=== PATIENT | female | born 1925 | race Caucasian/White ===

== ENCOUNTER 2017-04-12 09:12 | Inpatient (IN) | payer MEDICARE, BC ==
[2017-04-12] VITALS (20 sets, daily range): BP systolic 106–158; BP diastolic 52–75; PULSE 72–97; RESP 18–28; TEMP 97.4–98.6; O2SAT 93–100
[~2017-04-12] VITALS: Ht 149.9 cm; Wt 54.0 kg
[~2017-04-12 09:12] MED LIST: ESTR42.5V VAGINAL; MELO7.5T4 PO; QUIN20TA33 PO; TOVI8TAB PO; VYTO10TA8 PO
[2017-04-12] MEDS ORDERED: SODIUM CHLORIDE 0.9% FLUSH 10 ML FLUSH IVF PRN (09:45)
[2017-04-12 09:46] LABS: MEAN CORPUSCULAR HGB CONC 29.6 % (32.0-36.0)
[2017-04-12 10:01] LABS: AUTOMATED NEUTROPHIL # 4.1 TH/MM3 (1.8-7.7); BASOPHIL % 0.5 % (0.0-2.0); EOSINOPHIL # 0.1 TH/MM3 (0-0.4); EOSINOPHIL % 2.2 % (0.0-4.0); LYMPH % 11.8 % (9.0-44.0); LYMPHOCYTE # 0.6 TH/MM3 (1.0-4.8); MEAN CORPUSCULAR HEMOGLOBIN 19.3 PG (27.0-34.0); MONO % 8.5 % (0.0-8.0); PLATELET COUNT 179 TH/MM3 (150-450); RED BLOOD COUNT 2.53 MIL/MM3 (4.00-5.30); WHITE BLOOD COUNT 5.4 TH/MM3 (4.0-11.0)
[2017-04-12 10:04] LABS: HEMO FLAGS DIFF FINAL
[2017-04-12 10:06] LABS: HEMATOCRIT 16.5 % (35.0-46.0)
--- NOTE | 2017-04-12 10:12 | RADRPT ---
EXAM DATE/TIME: 04/12/2017 09:46 [place] COMPARISON: No previous studies available for comparison. INDICATIONS : Patient states that she cannot take in deep inspiration. MEDICAL HISTORY : None. SURGICAL HISTORY : None. ENCOUNTER: Initial ACUITY: 1 day PAIN SCORE: 2/10 LOCATION: Bilateral upper chest FINDINGS: There is minimal basilar parenchymal opacity. Slight blunting of the right costophrenic angle may ind icate small effusion. Cardiac contours are satisfactory. CONCLUSION: Mild basilar parenchymal opacities and possible tiny effusion Fermin Thomas MD on April 12, 2017 at 10:10 Board Certified Radiologist. This report was verified electronically.
[2017-04-12] MEDS ORDERED: SODIUM CHLOR 0.9% 250 ML INJ 250 ML IV ONE (10:15)
--- NOTE | 2017-04-12 10:24 | PD ---
HPI Chief Complaint: Respiratory Symptoms Time Seen by Provider: 09:44 Travel History International Travel<30 days: No Contact w/Intl Traveler<30days: No Traveled to known affect area: No History of Present Illness HPI 89-year-old female arrives to the ER due to shortness of breath. The patient has dyspnea on exertion. There is no orthopnea. She has no chest pain. She does have back pain which radiates to the leg into the shoulder. The symptoms have been gradual in onset. Duration of the shortness of breath has been on the order of weeks and gradually worsening. The son believes it might be due to low hemoglobin. The patient has had no bloody stool or dark stool. Evidently the son has been able to help with the fecal occult blood tests and reports no blood in stool. No fever or cough. No nausea vomiting. No diarrhea. PFSH Past Medical History Anxiety: Yes Cancer: Yes (SKIN) Cardiovascular Problems: Yes High Cholesterol: Yes Diabetes: Yes Patient Takes Glucophage: No Diminished Hearing: No Gastrointestinal Disorders: Yes GERD: Yes Hypertension: Yes Psychiatric: Yes Respiratory: Yes Integumentary: Yes Thyroid Disease: Yes : 3 Para: 3 Past Surgical History Gynecologic Surgery: Yes Hysterectomy: Yes Tonsillectomy: Yes Other Surgery: Yes (PRE-CANCEROUS SKIN REMOVED) Social History Alcohol Use: No Tobacco Use: No Substance Use: No Allergies-Medications (Allergen,Severity, Reaction): Coded Allergies: No Known Allergies (Unverified , 04/12/17) Reported Meds & Prescriptions Reported Meds & Active Scripts Active Quinapril HCl 20 Mg Tablet 20 Mg PO DAILY Toviaz ER (Fesoterodine Fumarate) 8 Mg Paul 8 Mg PO DAILY Reported Prevacid (Lansoprazole) Unknown Strength Capdr 1 Cap PO DAILY Mobic (Meloxicam) 15 Mg Tab 15 Mg PO DAILY Vitamin D3 (Cholecalciferol) 1,000 Unit Tab 1,000 Units PO DAILY Ascorbic Acid 500 Mg Tab 500 Mg PO DAILY Fiber Gummies (Inulin/Chromium Picolinate) 1 Each Tab.chew 1 Chew PO DAILY Centrum Silver Women Tablet (Multivit-Min/Iron/Folic/Lutein) 1 Each Tablet 1 Tab PO DAILY Probiotic (Lactobacillus Acidophilus) 1 Cap Cap 1 Cap PO DAILY Aspirin Adult Low Strength (Aspirin) 81 Mg Tabdr 81 Mg PO DAILY Estrace Vaginal (Estradiol) 0.01% Cream 1 Appl VAGINAL MOWEFR Insert 1 applicatorful vaginally at bedtime on Monday,Monday and Monday Januvia (Sitagliptin Phosphate) 100 Mg Tab 100 Mg PO DAILY Levothyroxine (Levothyroxine Sodium) 25 Mcg Tab 25 Mcg PO DAILY Metoprolol Tartrate 25 Mg Tab 25 Mg PO DAILY Evista (Raloxifene HCl) 60 Mg Tab 60 Mg PO DAILY Review of Systems Except as stated in HPI: all other systems reviewed are Neg General / Constitutional: No: Fever Gastrointestinal: Positive: Diarrhea Physical Exam Narrative GENERAL: 89 yo F, WNWD, NAD SKIN: Warm and dry. HEAD: Atraumatic. Normocephalic. EYES: Pupils equal and round. No scleral icterus. No injection or drainage. ENT: No nasal bleeding or discharge. Mucous membranes pink and moist. NECK: Trachea midline. No JVD. CARDIOVASCULAR: Regular rate and rhythm. RESPIRATORY: No accessory muscle use. Clear to auscultation. Breath sounds equal bilaterally. GASTROINTESTINAL: Abdomen soft, non-tender, nondistended. Hepatic and splenic margins not palpable. MUSCULOSKELETAL: Extremities without clubbing, cyanosis, or edema. No obvious deformities. NEUROLOGICAL: Awake and alert. No obvious cranial nerve deficits. Motor grossly within normal limits. Five out of 5 muscle strength in the arms and legs. Normal speech. PSYCHIATRIC: Appropriate mood and affect; insight and judgment normal. Data Data Last Documented VS Vital Signs Date Time Temp Pulse Resp B/P Pulse Ox O2 Delivery O2 Flow Rate FiO2 04/12/17 10:38 83 26 118/57 99 Nasal Cannula 2.0 04/12/17 09:14 98.2 Vital signs reviewed Orders Electrocardiogram (04/12/17 ) Complete Blood Count With Diff (04/12/17 09:44) B-Type Natriuretic Peptide (04/12/17 09:44) Ckmb (Isoenzyme) Profile (04/12/17 09:44) Troponin I (04/12/17 09:44) Urinalysis - C+S If Indicated (04/12/17 09:44) Iv Access Insert/Monitor (04/12/17 09:44) Electrocardiogram (04/12/17 09:44) Ecg Monitoring (04/12/17 09:44) Oximetry (04/12/17 09:44) Oxygen Administration (04/12/17 09:44) Chest, Single Ap (04/12/17 09:44) Sodium Chloride 0.9% Flush (Ns Flush) (04/12/17 09:45) Basic Metabolic Panel (Bmp) (04/12/17 09:44) Type And Screen (04/12/17 10:08) Red Blood Cells (Rbc) (04/12/17 10:08) Blood Product Administration .UPON TRANSFUSION (04/12/17 10:08) Sodium Chlor 0.9% 250 Ml Inj (Ns 250 Ml (04/12/17 10:15) Admit Order (Ed Use Only) (04/12/17 10:43) Iron/Tibc Profile (04/12/17 10:42) Labs Laboratory Tests Test 04/12/17 09:30 White Blood Count 5.4 TH/MM3 Red Blood Count 2.53 MIL/MM3 Hemoglobin 4.9 GM/DL Hematocrit 16.5 % Mean Corpuscular Volume 65.0 FL Mean Corpuscular Hemoglobin 19.3 PG Mean Corpuscular Hemoglobin 29.6 % Concent Red Cell Distribution Width 24.0 % Platelet Count 179 TH/MM3 Mean Platelet Volume 8.7 FL Neutrophils (%) (Auto) 77.0 % Lymphocytes (%) (Auto) 11.8 % Monocytes (%) (Auto) 8.5 % Eosinophils (%) (Auto) 2.2 % Basophils (%) (Auto) 0.5 % Neutrophils # (Auto) 4.1 TH/MM3 Lymphocytes # (Auto) 0.6 TH/MM3 Monocytes # (Auto) 0.5 TH/MM3 Eosinophils # (Auto) 0.1 TH/MM3 Basophils # (Auto) 0.0 TH/MM3 CBC Comment DIFF FINAL Differential Comment Sodium Level 138 MEQ/L Potassium Level 4.8 MEQ/L Chloride Level 107 MEQ/L Carbon Dioxide Level 22.7 MEQ/L Anion Gap 8 MEQ/L Blood Urea Nitrogen 22 MG/DL Creatinine 1.43 MG/DL Estimat Glomerular Filtration 35 ML/MIN Rate Random Glucose 141 MG/DL Calcium Level 8.5 MG/DL Total Creatine Kinase 76 U/L Troponin I 0.03 NG/ML B-Type Natriuretic Peptide 577 PG/ML MDM Medical Decision Making Medical Screen Exam Complete: Yes Emergency Medical Condition: Yes Medical Record Reviewed: Yes Differential Diagnosis Anemia, renal failure, CHF, COPD, pneumonia, electrolyte imbalance polypharmacy Narrative Course EKG reveals a sinus rhythm with a right bundle branch block, rate 91 CBC & BMP Diagram 04/12/17 09:30 Tn 0.03 BNP 577 2U PRBCs ordered. Case d/w Family Medicine Residents, admission for acute anemia and PRBC transfusion. Diagnosis Primary Impression: Anemia Qualified Code: D64.9 - Anemia, unspecified type Additional Impression: CHF (congestive heart failure) Admitting Information Admitting Physician Requests: Admit Ludwin Rutledge MD Apr 12, 2017 10:24
[2017-04-12 10:33] LABS: BICARBONATE 22.7 MEQ/L (21.0-32.0)
[2017-04-12 10:36] LABS: POTASSIUM 4.8 MEQ/L (3.5-5.1)
[2017-04-12] MEDS ORDERED: ESTR42.5V VAGINAL (10:48)
[2017-04-12] MEDS ORDERED: MOBI15TA PO (10:48)
[2017-04-12] MEDS ORDERED: LEVO25TA4 PO (10:48)
[2017-04-12] MEDS ORDERED: SITA1TAB2 PO (10:48)
[2017-04-12] MEDS ORDERED: EVIS60TA PO (10:48)
[2017-04-12] MEDS ORDERED: INUL1TAB PO (10:48)
[2017-04-12] MEDS ORDERED: LACTCAP8 PO (10:48)
[2017-04-12] MEDS ORDERED: MULT1TAB61 PO (10:48)
[2017-04-12] MEDS ORDERED: ASCO500T PO (10:48)
[2017-04-12] MEDS ORDERED: ASPI1TAB91 PO (10:48)
[2017-04-12] MEDS ORDERED: VITA100064 PO (10:48)
[2017-04-12] MEDS ORDERED: METO25TA3 PO (10:48)
[2017-04-12] MEDS ORDERED: PREV30CA11 PO (10:50)
[2017-04-12 11:23] LABS: TRANSFERRIN IRON PROFILE 341 MG/DL (200-360)
[2017-04-12] MEDS ORDERED: ONDANSETRON HCL 4 MG/2 ML VIAL IVP PRN (11:30)
[2017-04-12] MEDS ORDERED: SODIUM CHLORIDE 0.9% FLUSH 10 ML FLUSH IV FLUSH PRN (11:30)
[2017-04-12] MEDS ORDERED: NALOXONE HCL 0.4 MG/ML AMP IV PRN (11:30)
[2017-04-12] MEDS ORDERED: RESP: ALBUTEROL 2.5 MG/IPRATROPIUM 0.5 MG NEB (PRN) NEB (11:32)
[2017-04-12] MEDS ORDERED: GLUCAGON 1 MG/ML VIAL OTHER PRN (12:00)
[2017-04-12] MEDS ORDERED: FUROSEMIDE 20 MG/2 ML VIAL IV ONE (12:00)
[2017-04-12] MEDS ORDERED: METOPROLOL TARTRATE 25 MG TAB PO SCH (12:00)
[2017-04-12] MEDS ORDERED: DEXTROSE 50% IN WATER 50 ML VIAL(D50) IV PUSH PRN (12:00)
[2017-04-12] MEDS: SODIUM CHLOR 0.9% 1000 ML INJ 1,000 ML IV SCH (12:08)
[2017-04-12] MEDS: PANTOPRAZOLE SODIUM 40 MG VIAL IV PUSH SCH (12:08)
[2017-04-12] MEDS: SODIUM CHLORIDE 0.9% FLUSH 10 ML FLUSH IV FLUSH SCH (12:08)
[2017-04-12 12:20] LABS: BACTERIA, URINE RARE /hpf; BLOOD, URINE NEG (NEG); COMMENT (UR) CULT NOT INDICATED; CULTURE IF INDICATED CULT NOT INDICATED; GLUCOSE,URINE NEG (NEG); KETONE, URINE NEG (NEG); NITRITE,URINE NEG (NEG); PH, URINE 5.5 (5.0-8.5); SQUAMOUS EPITHELIAL CELL URINE 1 /hpf (0-5); URINE COLOR LIGHT-YELLOW (YELLW/STRAW)
[2017-04-12] MEDS: LEVOTHYROXINE SODIUM 25 MCG TAB PO SCH (12:22)
--- NOTE | 2017-04-12 12:24 | HHI.HP ---
[facility] Service Family Medicine Primary Care Physician Jules Levy MD Admission Diagnosis Anemia Diagnoses: International Travel<30 Days: No Contact w/Intl Traveler<30days: No Known Affected Area: No History of Present Illness Freda Borrego is a very pleasant 89 year old woman with PMH of HTN and DM who presents to the ED due to feeling short of breath for the past few days. Her Hgb is found to be 4.9 on admission. Her son states her Hgb was 9.0 in January of this year. Freda states her shortness of breath has been gradually worsening over the past few days and thinks it may be associated with some low back pain she has been having. She denies any excessive fatigue or lightheadedness. She denies a history of CHF or COPD. Denies abdominal pain, melena, visible blood in stools, vomiting or hematemesis. She states she has never had a colonoscopy or EGD. She had been taking mobic 7.5mg daily for relief of her back pain over a period of about 2 weeks recently however stopped taking this a few days ago after she started feeling short of breath. Review of Systems Constitutional: DENIES: Fever, Chills, Change in appetite Respiratory: COMPLAINS OF: Shortness of breath, DENIES: Cough, Hemoptysis, Sputum production Cardiovascular: DENIES: Chest pain, Lower Extremity Edema Gastrointestinal: DENIES: Abdominal pain, Black stools, Bloody stools, Constipation, Diarrhea, Nausea, Vomiting Genitourinary: DENIES: Dysuria Past Family Social History Past Medical History HTN DM HLD Hypothyroidism Low back pain Past Surgical History L knee replacement L hip replacement Hysterectomy Excision of precancerous lesions on face Allergies: Coded Allergies: No Known Allergies (Unverified , 04/12/17) Family History HTN and DM in the family Social History Tobacco: reports a history of smoking over a period of 30-40 years, states she quit 30 years ago Etoh: denies Illicit drugs: denerick Recently moved from [place] Resides at [facility] Physical Exam Vital Signs Vital Signs Date Time Temp Pulse Resp B/P Pulse Ox O2 Delivery O2 Flow Rate FiO2 04/12/17 11:50 99 Nasal Cannula 2.00 04/12/17 11:46 96 25 127/59 99 Nasal Cannula 2.0 04/12/17 10:38 83 26 118/57 99 Nasal Cannula 2.0 04/12/17 09:47 96 Room Air 04/12/17 09:47 Nasal Cannula 2.0 04/12/17 09:36 96 22 110/69 96 Room Air 04/12/17 09:14 98.2 97 28 127/60 98 Room Air Physical Exam GENERAL: NAD, lying comfortably in bed NEURO: Alert. Normal speech. baler operator grossly intact. Motor grossly normal. SKIN: Warm and dry. Scattered senile ecchymoses on extremities. No open lesions. No skin breakdown. HEAD: Normocephalic. Atraumatic. EYES: PERRL. EOMI. No scleral icterus. No injection or drainage. Conjunctival pallor. ENT: No nasal drainage. Moist mucous membranes. No oral ulcers or lesions. NECK: Supple, trachea midline. No JVD. CARDIOVASCULAR: Regular rate and rhythm, blowing systolic murmur L and R USB. Peripheral pulses 2+. Capillary refill ~3-4 seconds. RESPIRATORY: Breath sounds clear to auscultation and equal bilaterally, without wheezes, rales, or rhonchi. No accessory muscle use. GASTROINTESTINAL: Abdomen soft, nontender, nondistended, normal BS. No organomegaly or masses. No rebound tenderness. No guarding. MUSCULOSKELETAL: No lower extremity edema. Normal range of motion. BACK: Nontender without obvious deformity. Laboratory Laboratory Tests Test 04/12/17 04/12/17 09:30 10:34 White Blood Count 5.4 Red Blood Count 2.53 Hemoglobin 4.9 Hematocrit 16.5 Mean Corpuscular Volume 65.0 Mean Corpuscular Hemoglobin 19.3 Mean Corpuscular Hemoglobin 29.6 Concent Red Cell Distribution Width 24.0 Platelet Count 179 Mean Platelet Volume 8.7 Neutrophils (%) (Auto) 77.0 Lymphocytes (%) (Auto) 11.8 Monocytes (%) (Auto) 8.5 Eosinophils (%) (Auto) 2.2 Basophils (%) (Auto) 0.5 Neutrophils # (Auto) 4.1 Lymphocytes # (Auto) 0.6 Monocytes # (Auto) 0.5 Eosinophils # (Auto) 0.1 Basophils # (Auto) 0.0 CBC Comment DIFF FINAL Differential Comment Sodium Level 138 Potassium Level 4.8 Chloride Level 107 Carbon Dioxide Level 22.7 Anion Gap 8 Blood Urea Nitrogen 22 Creatinine 1.43 Estimat Glomerular Filtration 35 Rate Random Glucose 141 Calcium Level 8.5 Iron Level 20 Total Iron Binding Capacity 477 Percent Iron Saturation 4.2 Total Creatine Kinase 76 Troponin I 0.03 B-Type Natriuretic Peptide 577 Blood Type O POSITIVE Antibody Screen NEGATIVE Crossmatch Leukocyte-Reduced Red Blood Cells Blood Bank Comment Result Diagram: 04/12/1792904/12/17929 Assessment and Plan Assessment and Plan 89 year old female admitted due to severe anemia Hgb found to be 4.9 suspected to be due to chronic blood loss anemia. Code Status DNR/DNI Discussed Condition With Dr. Prakash Galaviz Problem List: (1) Anemia Status: Acute Plan: - Will transfuse 2 units PRBCs - Lasix 20 mg IV x1 to be given after first unit - Protonix 40 mg IV q12h - Iron panel c/w iron deficiency anemia - F/u post-transfusion H/H - Consult gastroenterology, appreciate recommendations (2) Elevated serum creatinine Status: Acute Plan: - Cr on admission 1.43, baseline unknown - Suspect MALINA; likely pre-renal due to hypovolemia - Transfuse PRBCs as above - NS at 90 cc/hr - Monitor renal function, I/Os - Avoid nephrotoxins (3) DM (diabetes mellitus) Status: Chronic Plan: Accuchecks ACHS Low-dose ISS Hold home meds (4) HTN (hypertension) Status: Chronic Plan: Monitor vitals q4h Continue home metoprolol Hold quinapril (5) Hypothyroidism Status: Chronic Plan: Continue home synthroid (6) Nutrition, metabolism, and development symptoms Status: Acute Plan: Fluids: NS at 90 cc/hr Electrolytes: WNL Nutrition: NPO DVT ppx: b/l SCDs, hold chemical anticoagulation due to suspected GI bleed GI ppx: Protonix 40 mg IV q12h Physician Certification 2 Midnight Certification Type: Admission for Inpatient Services Order for Inpatient Services The services are ordered in accordance with Medicare regulations or non- Medicare payer requirements, as applicable. In the case of services not specified as inpatient-only, they are appropriately provided as inpatient services in accordance with the 2-midnight benchmark. Estimated LOS (days): 2 days is the estimated time the patient will need to remain in the hospital, assuming treatment plan goals are met and no additional complications. Post-Hospital Plan: Home Paxton Thapa MD R2 Apr 12, 2017 12:24
[2017-04-12] MEDS ORDERED: TOLTERODINE TARTRATE 4 MG CAP LA PO SCH (13:00)
--- NOTE | 2017-04-12 15:01 | PD.CONS ---
HPI History of Present Illness This is a 89 year old female with DMII, HTN, HLD, who presented to the ER with lower back pain and worsening SOB worse in the last few days. She was found to have hgb 4.9. In January her hgb was 9.0 per son. Denies CHF. Admits to BRBPR occasionally, last time was 3m ago and saw when she was constipated requiring a digital disempaction. Denies black tarry stool. 3 months ago says she had neg hemoccult stool tests.SHe did start mobic 2 weeks ago for back pain and prior took Aleve regularly. SHe has GERD for which she takes prevacid; started 2 weeks ago and has good results with that medication. Never had colonoscopy or EGD. Does have hx iron deficient anemia. PFSH Past Medical History HTN Hyperlipidemia GERD HTN Past Surgical History hysterectomy left knee replacement left hip replacement excision precancerous lesions face Coded Allergies: No Known Allergies (Unverified , 04/12/17) Family History none Social History no ETOH former smoker quit 30y ago no illicit drug use Review of Systems Constitutional: DENIES: Fever Ears, nose, mouth, throat: DENIES: Hearing loss Respiratory: DENIES: Cough Cardiovascular: DENIES: Chest pain Gastrointestinal: COMPLAINS OF: Constipation, Heartburn, DENIES: Abdominal pain, Black stools, Bloody stools, Diarrhea, Nausea, Vomiting, Difficulty Swallowing, Hematemesis Genitourinary: DENIES: Hematuria Musculoskeletal: DENIES: Joint Swelling Integumentary: DENIES: Jaundice Neurologic: DENIES: Abnormal gait Psychiatric: DENIES: Confusion GI Exam Vitals I&O Vital Signs Date Time Temp Pulse Resp B/P Pulse Ox O2 Delivery O2 Flow Rate FiO2 04/12/17 14:09 76 25 115/56 100 Nasal Cannula 2.0 04/12/17 12:48 79 24 106/52 100 Nasal Cannula 2.0 04/12/17 11:50 99 Nasal Cannula 2.00 04/12/17 11:46 96 25 127/59 99 Nasal Cannula 2.0 04/12/17 10:38 83 26 118/57 99 Nasal Cannula 2.0 04/12/17 09:47 96 Room Air 04/12/17 09:47 Nasal Cannula 2.0 04/12/17 09:36 96 22 110/69 96 Room Air 04/12/17 09:14 98.2 97 28 127/60 98 Room Air I/O 04/11/17 04/11/17 04/11/17 04/12/17 04/12/17 04/12/17 07:00 15:00 23:00 07:00 15:00 23:00 Output Total 1100 ml Balance -1100 ml Output Urine Total 1100 ml # Voids 2 Imaging Last Impressions Chest X-Ray 04/12/17 0944 Signed Impressions: Service Date/Time: Wednesday, April 12, 2017 09:46 - CONCLUSION: Mild basilar parenchymal opacities and possible tiny effusion Fermin Thomas MD Laboratory Test 04/12/17 04/12/17 04/12/17 04/12/17 09:30 10:34 11:40 13:00 White Blood Count 5.4 TH/MM3 Red Blood Count 2.53 MIL/MM3 Hemoglobin 4.9 GM/DL Hematocrit 16.5 % Mean Corpuscular Volume 65.0 FL Mean Corpuscular Hemoglobin 19.3 PG Mean Corpuscular Hemoglobin 29.6 % Concent Red Cell Distribution Width 24.0 % Platelet Count 179 TH/MM3 Mean Platelet Volume 8.7 FL Neutrophils (%) (Auto) 77.0 % Lymphocytes (%) (Auto) 11.8 % Monocytes (%) (Auto) 8.5 % Eosinophils (%) (Auto) 2.2 % Basophils (%) (Auto) 0.5 % Neutrophils # (Auto) 4.1 TH/MM3 Lymphocytes # (Auto) 0.6 TH/MM3 Monocytes # (Auto) 0.5 TH/MM3 Eosinophils # (Auto) 0.1 TH/MM3 Basophils # (Auto) 0.0 TH/MM3 CBC Comment DIFF FINAL Differential Comment Sodium Level 138 MEQ/L Potassium Level 4.8 MEQ/L Chloride Level 107 MEQ/L Carbon Dioxide Level 22.7 MEQ/L Anion Gap 8 MEQ/L Blood Urea Nitrogen 22 MG/DL Creatinine 1.43 MG/DL Estimat Glomerular Filtration 35 ML/MIN Rate Random Glucose 141 MG/DL Calcium Level 8.5 MG/DL Iron Level 20 MCG/DL Total Iron Binding Capacity 477 MCG/DL Percent Iron Saturation 4.2 % Total Creatine Kinase 76 U/L Troponin I 0.03 NG/ML B-Type Natriuretic Peptide 577 PG/ML Blood Type O POSITIVE O POSITIVE Antibody Screen NEGATIVE Crossmatch Leukocyte-Reduced Red Blood Cells Blood Bank Comment Urine Color LIGHT-YELLOW Urine Turbidity CLEAR Urine pH 5.5 Urine Specific [place] 1.006 Urine Protein NEG mg/dL Urine Glucose (UA) NEG mg/dL Urine Ketones NEG mg/dL Urine Occult Blood NEG Urine Nitrite NEG Urine Bilirubin NEG Urine Urobilinogen LESS THAN 2.0 MG/DL Urine Leukocyte Esterase NEG Urine WBC LESS THAN 1 /hpf Urine Squamous Epithelial 1 /hpf Cells Urine Bacteria RARE /hpf Microscopic Urinalysis Comment CULT NOT INDICATED Physical Examination HEENT: PERRL; pale sclera, normocephalic; atraumatic; no jaundice. CHEST: CTA CARDIAC: RRR + murmur ABDOMEN: Soft, nondistended, nontender; no hepatosplenomegaly; bowel sounds are present in all four quadrants. EXTREMITIES: No clubbing, cyanosis, or edema. SKIN: pallor, no rash; no jaundice. 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 Assessment and Plan Plan ASSESSMENT - anemia - hgb 4.9 hypchromic, microcytic. low serum Fe and elev TIBC, could be CHEO. pt with hx frequent NSAID use. Hgb was 9.0 in January. Never had EGD or colonoscopy no obvious GIB blood transfusion pending - constipation - chronic. requiring digital disimpaction few months ago. PLAN - EGD/colonoscopy in am - obtain consents - clears today - NPO after midnight - miralax prep - monitor HH - blood transfusion - further recs to follow THis pt seen by myself and Dr Garay and this note is written on his behalf Lourdes Martinez Apr 12, 2017 15:01
[2017-04-12] MEDS: INSULIN ASPART SUPPLEMENTAL SCALE SQ SCH ×2 (16:00→21:00)
[2017-04-12] MEDS ORDERED: POLYETHYLENE GLYCOL 17 GM PKG PO ONE (16:00)
[2017-04-12] MEDS ORDERED: POLYETHYLENE GLYCOL POWDER 255 GM BTL PO ONE (16:00)
--- NOTE | 2017-04-12 17:30 | HHI.FPPN ---
Subjective Remarks Medicine attending note: Delightful [age]ogenarian patient admitted with a profound anemia and somatic complaints of shortness of breath. Patient moved to the [place] area 5 weeks ago, is a resident at [facility] and her son lives in [place]. Over the last several weeks the patient has become increasingly short of breath, does have some back pain which inhibits her mobility and quality of life. Patient has been described as anemic in the past and to her and her son's knowledge has not had any GI studies. Please refer to the resident's history and physical for complete discussion of the past medical history, family history, review of systems and social history. Objective Vitals Vital signs noted. Notably stable considering profound anemia. Gen. appearance: Pale appearing, delightful in conversation, makes excellent eye contact, no acute distress, sitting in [facility]. Son at her bedside. HEENT: Grossly nonlocalizing Lungs: Diminished breath sounds on the right base compared to the left. Nares clear. Cardiac: S1-S2, 2/6. Murmur heard best at the aortic area. No S3. Abdomen: active bowel sounds, soft, slightly protuberant, organomegaly, no tenderness, no masses. Extremities: Feet are warm and dry, no edema, intact pedal pulses. Vital Signs Date Time Temp Pulse Resp B/P Pulse Ox O2 Delivery O2 Flow Rate FiO2 04/12/17 15:50 98.6 75 26 115/60 100 Nasal Cannula 3.0 04/12/17 15:50 98.6 73 26 115/60 100 Nasal Cannula 2.0 04/12/17 15:31 98.6 73 24 123/62 100 Nasal Cannula 3.0 04/12/17 15:26 98.6 73 24 123/62 100 Nasal Cannula 2.0 04/12/17 14:09 76 25 115/56 100 Nasal Cannula 2.0 04/12/17 12:48 79 24 106/52 100 Nasal Cannula 2.0 04/12/17 11:50 99 Nasal Cannula 2.00 04/12/17 11:46 96 25 127/59 99 Nasal Cannula 2.0 04/12/17 10:38 83 26 118/57 99 Nasal Cannula 2.0 04/12/17 09:47 96 Room Air 04/12/17 09:47 Nasal Cannula 2.0 8/9/17 09:36 96 22 110/69 96 Room Air 04/12/17 09:14 98.2 97 28 127/60 98 Room Air I/O 04/11/17 04/11/17 04/11/17 04/12/17 04/12/17 04/12/17 07:00 15:00 23:00 07:00 15:00 23:00 Output Total 1100 ml Balance -1100 ml Output Urine Total 1100 ml # Voids 2 Result Diagram: 04/12/1730 04/12/1730 A/P Assessment and Plan 89 year old female admitted due to severe anemia Hgb found to be 4.9 suspected to be due to chronic blood loss anemia. Clinical assessment: Delightful 89-year-old woman admitted with a profound anemia with hemoglobin of 8.9. Strongly suggestive of a GI blood loss. Appears to have been evolving over a period of time as the patient is very stable with regards to vital signs, mental status. She was having some shortness of breath leading to the admission. Additional medical concerns include renal insufficiency, hypertension and hypothyroidism. Patient seen and examined. Case reviewed and discussed with resident team. Agree with plan of care is discussed with me and documented in the resident note. Problem List: (1) Anemia Status: Acute Plan: - Will transfuse 2 units PRBCs - Lasix 20 mg IV x1 to be given after first unit - Protonix 40 mg IV q12h - Iron panel c/w iron deficiency anemia - F/u post-transfusion H/H - Consult gastroenterology, appreciate recommendations (2) Elevated serum creatinine Status: Acute Plan: - Cr on admission 1.43, baseline unknown - Suspect MALINA; likely pre-renal due to hypovolemia - Transfuse PRBCs as above - NS at 90 cc/hr - Monitor renal function, I/Os - Avoid nephrotoxins (3) DM (diabetes mellitus) Status: Chronic Plan: Accuchecks ACHS Low-dose ISS Hold home meds (4) HTN (hypertension) Status: Chronic Plan: Monitor vitals q4h Continue home metoprolol Hold quinapril (5) Hypothyroidism Status: Chronic Plan: Continue home synthroid (6) Nutrition, metabolism, and development symptoms Status: Acute Plan: Fluids: NS at 90 cc/hr Electrolytes: WNL Nutrition: NPO DVT ppx: b/l SCDs, hold chemical anticoagulation due to suspected GI bleed GI ppx: Protonix 40 mg IV q12h Nabeel Randall MD Apr 12, 2017 17:30
[2017-04-12] MEDS ORDERED: BISACODYL EC 5 MG TABEC PO ONE (19:00)
[2017-04-13] VITALS: BP 158/70; PULSE 89; RESP 17; TEMP 96.9; O2SAT 96
[2017-04-13] MEDS: PANTOPRAZOLE SODIUM 40 MG VIAL IV PUSH SCH
[2017-04-13] MEDS: SODIUM CHLOR 0.9% 1000 ML INJ 1,000 ML IV SCH (00:01)
[2017-04-13] MEDS: SODIUM CHLORIDE 0.9% FLUSH 10 ML FLUSH IV FLUSH SCH ×2 (00:10→08:40)
[2017-04-13 02:12] VITALS: PULSE 106
[2017-04-13 02:57] LABS: HEMATOCRIT 28.4 % (35.0-46.0)
[2017-04-13 02:58] LABS: REVIEW FLAG FINAL
[2017-04-13 04:00] VITALS: BP 159/74; PULSE 85; RESP 18; TEMP 97.1; O2SAT 98
[2017-04-13] MEDS: LEVOTHYROXINE SODIUM 25 MCG TAB PO SCH (05:57)
[2017-04-13] MEDS: INSULIN ASPART SUPPLEMENTAL SCALE SQ SCH ×2 (06:00→11:00)
[2017-04-13 08:00] VITALS: BP 137/65; PULSE 85; RESP 16; TEMP 98.3; O2SAT 98
--- NOTE | 2017-04-13 08:08 | EKG ---
Date Performed: 04/12/2017 Time Performed: 09:40:51 PTAGE: 89 years EKG: Sinus rhythm RIGHT BUNDLE BRANCH BLOCK ABNORMAL ECG NO PREVIOUS TRACING DOCTOR: Irvin Key Interpretating Date/Time 04/13/2017 08:04:50
[2017-04-13] MEDS ORDERED: SIMETHICONE SUSP DROPS 40 MG/0.6 ML 30 ML BTL ONE (09:35)
[2017-04-13] MEDS ORDERED: GLUCAGON 1 MG/ML VIAL OTHER ONE (09:35)
[2017-04-13] MEDS ORDERED: DO NOT ADM ANY ANTICOAGULANT DRUGS PRN (10:23)
--- NOTE | 2017-04-13 10:26 | HHI.GIFU ---
Subjective Remarks EGD showed several AVMs in stomach and duodenum. They were ablated with bipolar. Colonoscopy showed mild diverticulosis. No cancer, no bleeding lesions. Small hemorrhoids. Objective Vitals I&O Vital Signs Date Time Temp Pulse Resp B/P Pulse Ox O2 Delivery O2 Flow Rate FiO2 04/13/17 08:00 98.3 85 16 137/65 98 04/13/17 04:00 97.1 85 18 159/74 98 04/13/17 02:12 106 04/13/17 00:00 96.9 89 17 158/70 96 04/12/17 23:35 96 Nasal Cannula 2.00 04/12/17 20:04 98.6 77 18 142/72 100 Nasal Cannula 2 04/12/17 20:00 97.4 75 18 158/70 93 04/12/17 19:44 98.6 78 23 143/75 100 Nasal Cannula 3 04/12/17 18:00 74 21 135/63 100 Nasal Cannula 2.0 04/12/17 18:00 74 21 135/63 100 Nasal Cannula 3.0 04/12/17 17:00 76 24 107/54 100 Nasal Cannula 2.0 04/12/17 17:00 76 24 107/54 100 Nasal Cannula 3.0 04/12/17 16:30 72 24 130/65 100 Nasal Cannula 3.0 04/12/17 16:05 98.5 74 19 133/61 100 Nasal Cannula 3.0 04/12/17 16:00 74 22 106/56 100 Nasal Cannula 2.0 04/12/17 15:50 98.6 75 26 115/60 100 Nasal Cannula 3.0 04/12/17 15:50 98.6 73 26 115/60 100 Nasal Cannula 2.0 04/12/17 15:31 98.6 73 24 123/62 100 Nasal Cannula 3.0 04/12/17 15:26 98.6 73 24 123/62 100 Nasal Cannula 2.0 04/12/17 14:09 76 25 115/56 100 Nasal Cannula 2.0 04/12/17 12:48 79 24 106/52 100 Nasal Cannula 2.0 04/12/17 11:50 99 Nasal Cannula 2.00 04/12/17 11:46 96 25 127/59 99 Nasal Cannula 2.0 04/12/17 10:38 83 26 118/57 99 Nasal Cannula 2.0 I/O 04/12/17 04/12/17 04/12/17 04/13/17 04/13/17 04/13/17 06:59 14:59 22:59 06:59 14:59 22:59 Intake Total 500 ml Output Total 1100 ml Balance -1100 ml 500 ml Intake Packed Cells 500 ml Output Urine Total 1100 ml # Voids 2 3 3 2 # Bowel Movements 2 1 Laboratory Laboratory Tests Test 04/12/17 04/12/17 04/12/17 04/13/17 10:34 11:40 13:00 02:48 Blood Type O POSITIVE O POSITIVE Antibody Screen NEGATIVE Crossmatch Leukocyte-Reduced Red Blood Cells Blood Bank Comment Urine Color LIGHT-YELLOW Urine Turbidity CLEAR Urine pH 5.5 Urine Specific [place] 1.006 Urine Protein NEG Urine Glucose (UA) NEG Urine Ketones NEG Urine Occult Blood NEG Urine Nitrite NEG Urine Bilirubin NEG Urine Urobilinogen LESS THAN 2.0 Urine Leukocyte Esterase NEG Urine WBC LESS THAN 1 Urine Squamous Epithelial 1 Cells Urine Bacteria RARE Microscopic Urinalysis Comment CULT NOT INDICATED Hemoglobin 9.0 Hematocrit 28.4 Physical Exam HEENT: Pupils round and reactive to light; normocephalic; atraumatic; no jaundice. Throat is clear. NECK: Neck is supple, no JVD, no lymphadenopathy. CHEST: Chest is clear to auscultation and percussion. CARDIAC: Regular rate and rhythm with no murmur gallop or rubs. ABDOMEN: Soft, nondistended, nontender; no hepatosplenomegaly; bowel sounds are present in all four quadrants. EXTREMITIES: No clubbing, cyanosis, or edema. SKIN: Normal; no rash; no jaundice. BOTTOM BUFFER: No focal deficits; alert and oriented times three. Assessment and Plan Plan ASSESSMENT - anemia - hgb 4.9 hypchromic, microcytic. low serum Fe and elev TIBC, could be CHEO. pt with hx frequent NSAID use. Hgb was 9.0 in January. Never had EGD or colonoscopy no obvious GIB blood transfusion pending - constipation - chronic. requiring digital disimpaction few months ago. EGD with ablation of AVMs and colonoscopy results above. PLAN - regular diet. High fiber to prevent constipation - PPI daily for 2 weeks to facilitate healing of the cautery sites. - Stable for discharge. Frederick Garay MD Apr 13, 2017 10:26
[2017-04-13] MEDS ORDERED: PROPOFOL 200 MG/20 ML AMP IV ONE (10:35)
[2017-04-13 11:14] VITALS: O2SAT 100
[2017-04-13 11:15] VITALS: BP 105/53; PULSE 87; RESP 16; TEMP 97.2; O2SAT 100
--- NOTE | 2017-04-13 11:26 | HHI.FPPN ---
Subjective Remarks No acute events overnight. Pt lying in bed, son at bedside. Doing well this AM. Just got back from her EGD/ colonoscopy. Reports that she feels better after receiving 2 units of PRBCs last night. Afebrile. Vitals are wnl. Denies CP, SOB , abdominal pain, N/V. Objective Vitals Vital Signs Date Time Temp Pulse Resp B/P Pulse Ox O2 Delivery O2 Flow Rate FiO2 04/13/17 11:14 100 2.00 04/13/17 11:05 85 14 117/56 99 Nasal Cannula 2 04/13/17 10:45 85 14 115/56 99 Nasal Cannula 2 04/13/17 10:24 98.5 84 14 101/50 97 Nasal Cannula 2 04/13/17 08:00 98.3 85 16 137/65 98 04/13/17 04:00 97.1 85 18 159/74 98 04/13/17 02:12 106 04/13/17 00:00 96.9 89 17 158/70 96 04/12/17 23:35 96 Nasal Cannula 2.00 04/12/17 20:04 98.6 77 18 142/72 100 Nasal Cannula 2 04/12/17 20:00 97.4 75 18 158/70 93 04/12/17 19:44 98.6 78 23 143/75 100 Nasal Cannula 3 04/12/17 18:00 74 21 135/63 100 Nasal Cannula 2.0 04/12/17 18:00 74 21 135/63 100 Nasal Cannula 3.0 04/12/17 17:00 76 24 107/54 100 Nasal Cannula 2.0 04/12/17 17:00 76 24 107/54 100 Nasal Cannula 3.0 04/12/17 16:30 72 24 130/65 100 Nasal Cannula 3.0 04/12/17 16:05 98.5 74 19 133/61 100 Nasal Cannula 3.0 04/12/17 16:00 74 22 106/56 100 Nasal Cannula 2.0 04/12/17 15:50 98.6 75 26 115/60 100 Nasal Cannula 3.0 04/12/17 15:50 98.6 73 26 115/60 100 Nasal Cannula 2.0 04/12/17 15:31 98.6 73 24 123/62 100 Nasal Cannula 3.0 04/12/17 15:26 98.6 73 24 123/62 100 Nasal Cannula 2.0 04/12/17 14:09 76 25 115/56 100 Nasal Cannula 2.0 04/12/17 12:48 79 24 106/52 100 Nasal Cannula 2.0 04/12/17 11:50 99 Nasal Cannula 2.00 04/12/17 11:46 96 25 127/59 99 Nasal Cannula 2.0 I/O 04/12/17 04/12/17 04/12/17 04/13/17 04/13/17 04/13/17 06:59 14:59 22:59 06:59 14:59 22:59 Intake Total 500 ml 400 ml Output Total 1100 ml 0 ml Balance -1100 ml 500 ml 400 ml Intake IV Total 100 ml Packed Cells 500 ml Other 300 ml Output Urine Total 1100 ml 0 ml Estimated Blood Loss 0 ml # Voids 2 3 3 2 # Bowel Movements 2 1 Result Diagram: 04/13/17 0248 04/12/17 0930 Imaging Last Impressions Chest X-Ray 04/12/17 0944 Signed Impressions: Service Date/Time: Wednesday, April 12, 2017 09:46 - CONCLUSION: Mild basilar parenchymal opacities and possible tiny effusion Fermin Thomas MD Objective Remarks Gen. lying in bed, pleasant, son at bedside, alert, appears less pale than yesterday Lungs:CTAB, no wheezing, crackles, rales Cardiac: S1-S2, 2/6. Murmur heard best at the aortic area. No S3. Abdomen: active bowel sounds, soft, slightly protuberant, organomegaly, no tenderness, no masses. Extremities: Feet are warm and dry, no edema, intact pedal pulses. A/P Assessment and Plan 89 year old female admitted due to severe anemia Hgb found to be 4.9 suspected to be due to chronic blood loss anemia. Clinical assessment: Delightful 89-year-old woman admitted with a profound anemia with hemoglobin of 8.9. Strongly suggestive of a GI blood loss. Appears to have been evolving over a period of time as the patient is very stable with regards to vital signs, mental status. She was having some shortness of breath leading to the admission. Additional medical concerns include renal insufficiency, hypertension and hypothyroidism. Patient seen and examined. Case reviewed and discussed with resident team. Agree with plan of care is discussed with me and documented in the resident note. Discharge Planning Discharge home to [facility]; follow up outpatient for CBC in 1 week and PCP follow up Problem List: (1) Anemia Status: Acute Plan: - s/p transfusion 2 units PRBCs, Hb up to 9.0 today - Iron low, TIBC elevated - Protonix 40 mg IV q12h - Iron panel c/w iron deficiency anemia - Consult gastroenterology, appreciate recommendations -EGD showed several AVMs in stomach and duodenum. They were ablated with bipolar. -Colonoscopy showed mild diverticulosis. No cancer, no bleeding lesions. Small hemorrhoids. (2) Elevated serum creatinine Status: Acute Plan: - Cr on admission 1.43, baseline unknown - Suspect MALINA; likely pre-renal due to hypovolemia - s/p 2 units PRBCs plus 20 mg IV lasix after every unit - NS at 90 cc/hr - Monitor renal function, I/Os - Avoid nephrotoxins (3) DM (diabetes mellitus) Status: Chronic Plan: Accuchecks ACHS Low-dose ISS Hold home meds (4) HTN (hypertension) Status: Chronic Plan: Monitor vitals q4h Continue home metoprolol Hold quinapril (5) Hypothyroidism Status: Chronic Plan: Continue home synthroid (6) Nutrition, metabolism, and development symptoms Status: Acute Plan: Fluids: NS at 90 cc/hr Electrolytes: WNL Nutrition: NPO DVT ppx: b/l SCDs, hold chemical anticoagulation due to suspected GI bleed GI ppx: Protonix 40 mg IV q12h Fany Galaviz MD R1 Apr 13, 2017 11:26
[2017-04-13] MEDS ORDERED: PHENYLEPH/NS 1000 MCG/10 ML SYR IV ONE (12:00)
--- NOTE | 2017-04-13 12:16 | HHI.DCPOC ---
Discharge Care Plan Diagnosis: (1) Anemia (2) Hypothyroidism (3) HTN (hypertension) (4) DM (diabetes mellitus) Goals to Promote Your Health * To prevent worsening of your condition and complications * To maintain your health at the optimal level Directions to Meet Your Goals Take your medications as prescribed Follow your dietary instruction Follow activity as directed Keep your appointments as scheduled Take your immunizations and boosters as scheduled If your symptoms worsen call your PCP, if no PCP go to Urgent Care Center or Emergency Room Smoking is Dangerous to Your Health. Avoid second hand smoke Call the 24-hour hour crisis hotline for domestic abuse at Fany Galaviz MD R1 Apr 13, 2017 12:16
[2017-04-13] MEDS ORDERED: PANT40P IV PUSH (12:20)
[2017-04-13] MEDS ORDERED: PROT40TA PO (12:22)
== END 2017-04-13 14:11 | disposition home or self-care (01) | DRG 378 ==
LOC: NEPC 09:12 → NEDA 10:44 → OBSVTOIN 11:31 → HOCB 20:33
PROVIDERS: ADMIT Family Medicine; ATTEND Family Medicine
PROC: 30233N1 Transfusion of Nonautologous Red Blood Cells into Peripheral Vein, Percutaneous Approach (ICD-10-PCS; principal; 2017-04-12)
PROC: 0DJD8ZZ Inspection of Lower Intestinal Tract, Via Natural or Artificial Opening Endoscopic (ICD-10-PCS; 2017-04-13)
PROC: 0W3P8ZZ Control Bleeding in Gastrointestinal Tract, Via Natural or Artificial Opening Endoscopic (ICD-10-PCS; 2017-04-13 09:23)
DX: K31.811 Angiodysplasia of stomach and duodenum with bleeding (principal); N17.9 Acute kidney failure, unspecified; E11.9 Type 2 diabetes mellitus without complications; D50.0 Iron deficiency anemia secondary to blood loss (chronic); I10 Essential (primary) hypertension; E03.9 Hypothyroidism, unspecified; F41.9 Anxiety disorder, unspecified; D50.9 Iron deficiency anemia, unspecified; K21.9 Gastro-esophageal reflux disease without esophagitis; K57.90 Diverticulosis of intestine, part unspecified, without perforation or abscess without bleeding; K59.09 Other constipation; E78.5 Hyperlipidemia, unspecified; Z66 Do not resuscitate; Z79.82 Long term (current) use of aspirin; K44.9 Diaphragmatic hernia without obstruction or gangrene; K64.8 Other hemorrhoids
CPT/HCPCS: 36430; 71010; 80048; 81001; 82550; 82948; 83540; 83550; 83880; 84484; 85014; 85018; 85025; 86850; 86900; 86901; 86920; 93005; C9113; J1610; J1940; J2370; J7030; J7050; P9016